=== PATIENT | female | born 1945 | race Caucasian/White ===

== ENCOUNTER 2016-11-26 15:36 | Observation (INO) | payer MEDICARE, OTHER ==
[~2016-11-26 15:36] MED LIST: AMITIZA8 MCG PO; CHILDRENS CHEWA81 MG PO; COLACE100 MG PO; DEPAKOTE ER500 MG PO; DIGOXIN125 MCG PO; DULCOLAX5 MG PO; ELIQUIS5 MG PO; ENDOCET 5-3251 EACH PO; FEOSOL325 MG PO; FLONASE 0.05% N16 GM; FOLIC ACID1 MG PO; LIPITOR10 MG PO; MEGACE400 MG/10 PO; MUCINEX D ER 61 EACH PO; NICODERM 14MG PA1 EA TD; PERPHENAZINE4 MG PO; PERPHENAZINE8 MG PO; PROTONIX40 MG PO; VALIUM5 MG PO
== END 2016-11-28 09:11 | disposition other institution (70) ==
LOC: ER 15:36 → MS 19:03
PROVIDERS: ADMIT Family Medicine
DX: J44.1 Chronic obstructive pulmonary disease with (acute) exacerbation (principal); D72.829 Elevated white blood cell count, unspecified; D64.9 Anemia, unspecified; R07.89 Other chest pain; G25.0 Essential tremor; Z80.9 Family history of malignant neoplasm, unspecified; I25.2 Old myocardial infarction; Z98.890 Other specified postprocedural states; Z87.891 Personal history of nicotine dependence; Z79.02 Long term (current) use of antithrombotics/antiplatelets; Z79.82 Long term (current) use of aspirin; Z79.899 Other long term (current) drug therapy
CPT/HCPCS: 36415; 36600; 71010; 80048; 80053; 80061; 80162; 80164; 82550; 82553; 82803; 83036; 83880; 85014; 85025; 85610; 85730; 93005; 93041; 94640; 94664; 96365; 96366; 96367; 96376; 99070; 99283; 99285-25; G0378; J2930

== ENCOUNTER 2016-11-26 15:36 | Inpatient (IN) | payer MEDICARE, OTHER ==
[~2016-11-26] VITALS: Ht 170.2 cm; Wt 46.0 kg
[2016-11-26 17:18] LABS: BASO % 0.1 % (0.1-1.2); EOS % 0.4 % (0.7-5.8); GRAN # 4.5 10_X3_uL (1.6-6.1); GRAN % 67.4 % (34.0-71.1); HEMATOCRIT 32.3 % (34-45); HEMOGLOBIN 9.5 g/dL (11.2-15.7); LYMPH # 1.4 10_X3_uL (1.2-3.7); LYMPH % 20.5 % (19.3-51.7); MEAN CORPUSCULAR HEMOGLOBIN 24.8 pg (27.0-33.0); MEAN CORPUSCULAR HGB CONC 29.4 g/dL (32.0-36.0); MEAN CORPUSCULAR VOLUME 84.3 fL (79-95); MEAN PLATELET VOLUME 8.8 fl (7.5-11.5); MONO # 0.8 10_X3_uL (0.2-0.9); MONO % 11.6 % (4.7-12.5); PLATELET COUNT 278 x10_3/uL (182-369); RED BLOOD COUNT 3.83 x10_6/uL (3.9-5.2); RED CELL DISTRIBUTION WIDTH 15.4 % (11.7-14.4); WHITE BLOOD COUNT 6.7 x10_3/uL (4.0-10.0)
[2016-11-26 17:36] LABS: ARTERIAL BLD GAS O2 SATURATION 95.3 % (94-98); ARTERIAL BLOOD GAS BASE EXCESS 7.8 mmol/L (-2.0-3.0); ARTERIAL BLOOD GAS HCO3 33.6 mmol/L (22-26); ARTERIAL BLOOD GAS PCO2 58.2 mmHg (32-45); ARTERIAL BLOOD GAS pH 7.38 (7.35-7.45)
[2016-11-26 17:43] LABS: ALBUMIN 3.8 gm/dL (3.4-5.0); ALKALINE PHOSPHATASE 56 U/L (50-136); ALT/SGPT 6 U/L (3.5-33.9); AST/SGOT 14 U/L (7.04-26.96); BLOOD UREA NITROGEN 12 mg/dL (7-18); CALCIUM 8.8 mg/dL (8.7-10.7); CARBON DIOXIDE 36 mmol/L (21-32); CREATINE KINASE 67 U/L (21-215); CREATININE < 0.5 mg/dL (0.6-1.3); GLUCOSE,RANDOM 76 mg/dL (70-99); POTASSIUM 4.1 mmol/L (3.5-5.1); SODIUM 139 mmol/L (136-145); TOTAL PROTEIN 6.8 gm/dL (6.4-8.2)
[2016-11-26 17:58] LABS: BILIRUBIN,TOTAL < 0.15 mg/dL (0.0-1.0)
[2016-11-26 20:19] LABS: PARTIAL THROMBOPLASTIN TIME 28.1 SECONDS (21.3-29.3); PROTHROMBIN TIME (PATIENT) 10.8 SECONDS (9.9-11.1)
[2016-11-27 00:02] LABS: CKMB 3.5 ng/ml (0.0-5.0)
[2016-11-27 00:36] LABS: TROP-I < 0.30 NG/ML (0.00-0.30)
[2016-11-27 04:58] LABS: HEMATOCRIT 30.4 % (34-45); HEMOGLOBIN 8.9 g/dL (11.2-15.7); MEAN CORPUSCULAR HEMOGLOBIN 24.4 pg (27.0-33.0); MEAN CORPUSCULAR HGB CONC 29.3 g/dL (32.0-36.0); MEAN CORPUSCULAR VOLUME 83.3 fL (79-95); MEAN PLATELET VOLUME 9.9 fl (7.5-11.5); RED BLOOD COUNT 3.65 x10_6/uL (3.9-5.2); RED CELL DISTRIBUTION WIDTH 15.5 % (11.7-14.4); WHITE BLOOD COUNT 5.1 x10_3/uL (4.0-10.0)
[2016-11-27 05:09] LABS: AHDL CHOLESTEROL 75 mg/dL (>40); BLOOD UREA NITROGEN 13 mg/dL (7-18); CALCIUM 8.9 mg/dL (8.7-10.7); CARBON DIOXIDE 27 mmol/L (21-32); CHOLESTEROL 124 mg/dL (0-200); CREATININE 0.5 mg/dL (0.6-1.3); GLUCOSE,RANDOM 176 mg/dL (70-99); LDL CHOLESTEROL 43 mg/dL (0-99); POTASSIUM 3.4 mmol/L (3.5-5.1); SODIUM 138 mmol/L (136-145); TRIGLYCERIDES 40 mg/dL (30-200)
[2016-11-27 05:10] LABS: CKMB 3.2 ng/ml (0.0-5.0)
[2016-11-27 05:13] LABS: TROP-I < 0.30 NG/ML (0.00-0.30)
[2016-11-27 11:40] LABS: HEMATOCRIT 29.1 % (34-45); HEMOGLOBIN 8.6 g/dL (11.2-15.7)
[2016-11-27 12:17] LABS: CKMB 2.6 ng/ml (0.0-5.0)
[2016-11-27 12:19] LABS: TROP-I < 0.30 NG/ML (0.00-0.30)
[2016-11-28 06:34] LABS: HEMATOCRIT 29.2 % (34-45); HEMOGLOBIN 8.7 g/dL (11.2-15.7); MEAN CORPUSCULAR HEMOGLOBIN 24.6 pg (27.0-33.0); MEAN CORPUSCULAR HGB CONC 29.8 g/dL (32.0-36.0); MEAN CORPUSCULAR VOLUME 82.7 fL (79-95); MEAN PLATELET VOLUME 9.9 fl (7.5-11.5); RED BLOOD COUNT 3.53 x10_6/uL (3.9-5.2); RED CELL DISTRIBUTION WIDTH 15.8 % (11.7-14.4); WHITE BLOOD COUNT 18.9 x10_3/uL (4.0-10.0)
[2016-11-28 06:48] LABS: BLOOD UREA NITROGEN 15 mg/dL (7-18); CALCIUM 8.9 mg/dL (8.7-10.7); CARBON DIOXIDE 31 mmol/L (21-32); CREATININE < 0.5 mg/dL (0.6-1.3); GLUCOSE,RANDOM 111 mg/dL (70-99); SODIUM 134 mmol/L (136-145)
[2016-11-29 06:45] LABS: CALCIUM 8.1 mg/dL (8.7-10.7); CARBON DIOXIDE 31 mmol/L (21-32); CREATININE < 0.5 mg/dL (0.6-1.3); GLUCOSE,RANDOM 79 mg/dL (70-99); POTASSIUM 4.6 mmol/L (3.5-5.1); SODIUM 136 mmol/L (136-145)
[2016-11-29 07:04] LABS: HEMOGLOBIN 8.6 g/dL (11.2-15.7); MEAN CORPUSCULAR HEMOGLOBIN 24.5 pg (27.0-33.0); MEAN CORPUSCULAR HGB CONC 29.7 g/dL (32.0-36.0); MEAN CORPUSCULAR VOLUME 82.6 fL (79-95); MEAN PLATELET VOLUME 10.3 fl (7.5-11.5); RED BLOOD COUNT 3.51 x10_6/uL (3.9-5.2); RED CELL DISTRIBUTION WIDTH 15.7 % (11.7-14.4); WHITE BLOOD COUNT 11.4 x10_3/uL (4.0-10.0)
[2016-11-29 07:10] LABS: BLOOD UREA NITROGEN 20 mg/dL (7-18)
== END 2016-11-29 13:45 | disposition home or self-care (01) | DRG 192 ==
LOC: ER 15:36 → MS 19:03
PROVIDERS: Internal Medicine; ADMIT Family Medicine
DX: J44.1 Chronic obstructive pulmonary disease with (acute) exacerbation (principal); D72.829 Elevated white blood cell count, unspecified; E87.6 Hypokalemia; D64.9 Anemia, unspecified; R07.89 Other chest pain; G25.0 Essential tremor; Z80.9 Family history of malignant neoplasm, unspecified; I25.2 Old myocardial infarction; Z98.890 Other specified postprocedural states; Z87.891 Personal history of nicotine dependence; Z79.02 Long term (current) use of antithrombotics/antiplatelets; Z79.82 Long term (current) use of aspirin; Z79.899 Other long term (current) drug therapy; Z88.0 Allergy status to penicillin
CPT/HCPCS: 36415; 36600; 71010; 80048; 80053; 80061; 80162; 80164; 82550; 82553; 82803; 83036; 83880; 85014; 85025; 85610; 85730; 90732; 93005; 93041; 94640; 94664; 96365; 99070; 99283; 99285-25; G0378; J2930